=== PATIENT | male | born 1945 | race Hispanic/Latino ===

== ENCOUNTER 2017-07-24 12:36 | Outpatient (CLI) | payer MEDICARE ==
--- NOTE | 2017-07-26 12:59 | XRay Report ---
Chest 2 views: History: Bronchitis. Findings: Normal cardiomediastinal silhouette. Trachea is midline. No consolidation, pneumothorax or pleural effusion. Impression: No acute cardiopulmonary findings.
== END 2017-07-24 12:37 | disposition home or self-care (01) ==
LOC: XRAY 12:36
PROVIDERS: ATTEND Internal Medicine
DX: J40 Bronchitis, not specified as acute or chronic (principal)
CPT/HCPCS: 71046

== ENCOUNTER 2018-09-18 10:42 | Outpatient (CLI) | payer MEDICARE ==
--- NOTE | 2018-09-18 11:27 | XRay Report ---
Left shoulder 3 views 1059 INDICATION: Left shoulder pain for several days No fractures or dislocations are seen. Moderate glenohumeral degenerative changes are noted. Slight c hronic clavicular degenerative changes are seen. Signer Name: Modesto Brown MD Signed: 09/18/2018 11:23 AM Workstation Name: [id number]
== END 2018-09-18 10:43 | disposition home or self-care (01) ==
LOC: XRAY 10:42
PROVIDERS: ATTEND Internal Medicine
DX: M19.012 Primary osteoarthritis, left shoulder (principal)

== ENCOUNTER 2019-03-19 09:50 | Outpatient (CLI) | payer MEDICARE ==
--- NOTE | 2019-03-19 10:23 | XRay Report ---
CHEST 2 VIEWS INDICATION: M54.5 PAIN IN THORACIC SPINE. COMPARISON: 07/24/2017 FINDINGS: Support devices: None. Heart: Within normal limits. Lungs/pleura: No acute air space or interstitial disease. No pneumothorax. Additional findings: No obvious displaced left rib fracture on chest x-ray. If further evaluation is needed consider CT chest. IMPRESSION: No acute findings. Signer Name: Marck Eric Jr, MD Signed: 03/19/2019 10:18 AM Workstation Name: [id number]
== END 2019-03-19 09:51 | disposition home or self-care (01) ==
LOC: XRAY 09:50
PROVIDERS: ATTEND Internal Medicine
DX: M54.6 Pain in thoracic spine (principal)
CPT/HCPCS: 71046